=== PATIENT | female | born 1975 | race Caucasian/White ===

== ENCOUNTER 2018-04-21 19:21 | Emergency (ER) | payer OTHER ==
--- NOTE | 2018-04-21 19:46 | PDOC ---
Rapid Medical Evaluation Chief Complaint: Back Pain Time Seen by Provider: 04/21/18 19:44 Medical Evaluation: Allergies Allergy/AdvReac Type Severity Reaction Status Date / Time No Known Allergies Allergy Verified 11/09/11 08:45 04/21/18 19:44 I have performed a brief in person evaluation of this patient. The patient present with a CC of: Back pain. Pertinent PE findings: Lungs Clear Heart RRR Abd: Soft, non distended. Bowel sounds in all four quadrants. Pt has pain upon palpation to the RLQ and LLQ. No guarding. MS: Pain upon palpation to the lumbar spine. Neuro: Alert and oriented Psych: Appropriate affect I have ordered the following: Abdominal protocol The patient will proceed to the ED for further evaluation: Discharge Disposition - Diagnosis Abdominal pain Qualifiers: Abdominal location: generalized Qualified Code(s): R10.84 - Generalized abdominal pain - Referrals - Patient Instructions - Post Discharge Activity
[2018-04-21 19:53] VITALS: BP 121/80; PULSE 85; TEMP 98.5; BMI 22.6
--- NOTE | 2018-04-21 20:20 | PDOC ---
History of Present Illness - General Chief Complaint: Back Pain Stated Complaint: BACK PAIN Time Seen by Provider: 04/21/18 19:44 - History of Present Illness Initial Comments: Mandy Irizarry is an otherwise healthy 42yo woman who presents complaining of bilateral low back pain that radiates to the b/l thighs for the past 2-3 weeks. She reports that the pain started in the low back 3 weeks ago. At that time, it was a "severe" pain, but she assumed it would go away on its own. The pain continued to worsen over time, however. She had no relief from ibuprofen, aspirin, acetaminophen, or naproxen. She tried icy-hot rub, and she tried getting a massage without any relief. Recently, she started having worsening pains that radiate to the b/l groin and into the thighs. These come and go. She is able to stand from sitting and ambulate without any difficulty. She denies any urinary retention or change in bowel habits, and has not had any change in sensation. She denies fever, chills , injury prior to the pain starting, or pain in other joints or muscles. She denies any dysuria, frequency, or urgency. Currently, she reports that her pain is 8-9/10 and radiating to both thighs. Past History - Past Medical History Allergies/Adverse Reactions: Allergies Allergy/AdvReac Type Severity Reaction Status Date / Time No Known Allergies Allergy Verified 11/09/11 08:45 Home Medications: Ambulatory Orders Iron 1 tab PO DAILY 11/09/11 Acetaminophen [Tylenol .Regular Strength -] 650 mg PO Q3H PRN #0 tablet Ibuprofen [Motrin -] 600 mg PO Q4H PRN #0 tablet 11/11/11 Capsule 1 tab PO DAILY 11/11/11 Ibuprofen 600 mg PO TID PRN #21 tablet 04/21/18 Methocarbamol [Robaxin -] 1,000 mg PO TID PRN #21 tablet 04/21/18 Asthma: No Cancer: No Cardiac Disorders: No COPD: No Diabetes: No HTN: No Seizures: No Thyroid Disease: No - Suicide/Smoking/Psychosocial Hx Smoking History: Never smoked Have you smoked in the past 12 months: No Information on smoking cessation initiated: No Hx Alcohol Use: No Drug/Substance Use Hx: No Substance Use Type: None Hx Substance Use Treatment: No Review of Systems - Review of Systems Comments:: General: No fevers, no chills, no weight or appetite change, no malaise HEENT: No changes in vision, no changes in hearing, no congestion, no sore throat CV: No chest pain, no palpitations, no LE edema Pulm: No SOB, no cough, no wheezing GI: No nausea or vomiting, no change in bowel habits, no melena : No frequency, no urgency, no dysuria Musc: +low back pain, no joint swelling, no recent injury Skin: No rash, no lesions, no erythema Endo: No excessive thirst, no heat/cold intolerance Heme: No unusual bruising or bleeding, no swollen glands Neuro: No syncope, no numbness/tingling, no focal weakness Vasc: No claudication Psych: No recent change in mood, no SI or HI *Physical Exam - Vital Signs Last Vital Signs Temp Pulse Resp BP Pulse Ox 98.5 F 85 18 121/80 100 04/21/18 19:44 04/21/18 19:44 04/21/18 19:44 04/21/18 19:44 04/21/18 19:44 - Physical Exam Comments: General: Comfortable, no acute distress HEENT: PERRL, EOMI, MMM, voice normal, normal neck ROM, no LAD Cards: RRR, no murmur appreciated Pulm: Comfortable on room air, clear to auscultation bilaterally Abd: Soft, nontender, nondistended : Mild b/l CVA tenderness Back: No bony tenderness, deformity, step-offs. TTP along lumbar paraspinal muscles Ext: Atraumatic. No LE edema. ROM intact. Strength 5/5 and equal bilaterally Vasc: Extremities WWP. Palpable radial and pedal pulses bilaterally Skin: Normal color, no rashes or lesions Neuro: A&Ox3, CN grossly intact, normal speech, Motor 5/5 and equal bilaterally in hips, knees, ankles, feet. Sensation to light touch intact. Psych: Mood appropriate to situation ED Treatment Course - LABORATORY CBC & Chemistry Diagram: 04/21/18 20:14 04/21/18 20:14 Medical Decision Making - Medical Decision Making 04/21/18 21:08 Mandy Irizarry is an otherwise healthy 42yo woman who presents with 3 weeks of low back pain that radiates down both thighs anteriorly. - Neurological exam intact, no concern for spinal compression or cauda equina - No history of injury, sudden onset of pain, twist/pop that would be concerning for bony injury - No urinary frequency, dysuria, urgency, etc concerning for UTI - No h/o stones. UA and culture ordered to r/o kidney stone and UTI - Most likely musculoskeletal given tenderness along paraspinal muscles 04/21/18 21:29 - Labs returned, no concerning abnormalities - UA and UCx sent - Toradol ordered for pain 04/21/18 22:22 - UA negative - Some improvement in pain after receiving toradol - 1000mg PO methocarbamol given 04/21/18 22:38 - Pt examined by Dr Kate - Lumbar and thoracic spine xrays ordered to r/o acute pathology or spinal injury 04/22/18 00:06 - Xrays reviewed. 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 - Should follow up with Dr Casillas - Discussed follow up, medications, return precautions with Ms Irizarry. She understands and agrees with the plan to discharge home. Seen and discussed with Dr Kate. Destiney Paula PGy1 *DC/Admit/Observation/Transfer Diagnosis at time of Disposition: Lumbar back pain - Discharge Dispostion Disposition: HOME Condition at time of disposition: Stable Decision to Admit order: No - Prescriptions Prescriptions: Ibuprofen 600 mg PO TID PRN #21 tablet PRN Reason: Pain Methocarbamol [Robaxin -] 1,000 mg PO TID PRN #21 tablet PRN Reason: Pain - Referrals Referrals: Stefan Perez [Primary Care Provider] - Walt Casillas MD, FAANS [Staff Physician] - - Patient Instructions Printed Discharge Instructions: DI for Back Pain With Sciatica Additional Instructions: Discharge Instructions: - You were seen in the ED for back and leg pain - Your blood tests were all normal - Your urine test was normal; there is no sign of infection - Xrays of your back were taken to check for an abnormal curvature of your spine called scoliosis. - You have been referred to a neurosurgeon, Dr Casillas. You should make an appointment to follow up within the next 1-2 weeks or sooner if your symptoms persist. - You have been prescribed ibuprofen (pain reliever and anti-inflammatory) and methocarbamol (muscle relaxant) to help with your pain. These can be taken every 8 hours as needed for pain. They often work best when taken at the same time. - You may also consider using hot or cold packs or soaking in epsom salt baths - Consider buying lidocaine patches (e.g. IcyHot lidocaine patches) at any pharmacy. These can be applied for 12 hours per day at the site of pain. - Seek immediate medical attention if you have weakness in your legs, are unable to urinate, are unable to control your bowels, or you have numbness along your buttocks and inner thighs. - Post Discharge Activity
[2018-04-21 20:23] LABS: BASO % 0.8 % (0-2.0); EOS % 6.5 % (0-4.5); HEMATOCRIT 33.9 % (32.4-45.2); HEMOGLOBIN 11.4 GM/dL (10.7-15.3); LYMPH % 37.3 % (8-40); MCH 30.1 pg (25.7-33.7); MCHC 33.7 g/dl (32.0-36.0); MEAN CELL VOLUME 89.2 fl (80-96); MEAN PLT VOLUME 7.9 fl (7.5-11.1); MONO % 6.6 % (3.8-10.2); NEUT % 48.8 % (42.8-82.8); PLATELET COUNT 226 K/MM3 (134-434); RDW 13.1 % (11.6-15.6); WHITE BLOOD COUNT 3.5 K/mm3 (4.0-10.0)
[2018-04-21 20:46] LABS: ALBUMIN 4.2 g/dl (3.4-5.0); ALK PHOS 51 U/L (45-117); ANION GAP 7 MMOL/L (8-16); BILIRUBIN,TOTAL 0.2 mg/dL (0.2-1); BLOOD UREA NITROGEN 12 mg/dL (7-18); CALCIUM 8.8 mg/dL (8.5-10.1); CHLORIDE 104 mmol/L (98-107); CO2 30 mmol/L (21-32); CREATININE 0.7 mg/dL (0.55-1.3); GLUCOSE,RANDOM 84 mg/dL (74-106); LIPASE 128 U/L (73-393); POTASSIUM 3.8 mmol/L (3.5-5.1); SGOT/AST 15 U/L (15-37); SGPT/ALT 20 U/L (13-61); SODIUM 141 mmol/L (136-145); TOT PROT 7.3 g/dl (6.4-8.2)
--- NOTE | 2018-04-21 21:12 | PDOC ---
Attending Attestation - [facility] HPI: 04/21/18 22:47 The patient is a 42 year old female with no significant past medical history who presents to the ED with complaints of intermittent bilateral low back pain that radiates to the thighs for the past 2-3 weeks. Patient states she was working out at the gym 3 weeks ago and the next day she woke up to severe lower back pain. She states her lower back pain progressively worsened over time and now states it radiates to her groin and into her thighs. She had no relief from ibuprofen, aspirin, acetaminophen, or naproxen. She tried icy-hot rub, and she tried getting a massage without any relief. Denies fever or chills. Denies edema. Denies chest pain or shortness of breath. Denies focal numbness/weakness/tingling. Denies dysuria or change in urinary output. Denies any other symptoms. - Physicial Exam PE: 04/21/18 22:47 Constitutional: Awake, alert, oriented. No acute distress. Head: Normocephalic. Atraumatic Eyes: PERRL. EOMI. Conjunctivae are not pale. ENT: Mucous membranes are moist and intact. Posterior pharynx without exudates or erythema. Uvula midline. Neck: Supple. Full ROM. No lymphadenopathy. Cardiovascular: Regular rate. Regular rhythm. S1, S2 regular. Distal pulses are 2+ and symmetric. Pulmonary/Chest: No evidence of respiratory distress. Clear to auscultation bilaterally No wheezing, rales or rhonchi. Abdominal: Soft and non-distended. There is no tenderness. No rebound, guarding or rigidity. No organomegaly. No palpable masses. Good bowel sounds. Back: + Normal ROM with side bending on both sides and extension. Limited ROM on flexion, to 5 degrees secondary to pain. Stands leaning towards the left. No CVA tenderness. Musculoskeletal: No edema. No cyanosis. No clubbing. Full range of motion in all extremities. Nocalf tenderness. Radial/pedal pulses are intact and 2+ bilaterally Skin: Skin is warm and dry. No petechiae. No purpura. Neurological: Alert and oriented to person, place, and time. Cranial nerves II -XII are grossly intact. Normal speech. Strength is grossly symmetric. No sensory deficits. Ambulated with a steady gait on heels and on toes. Psychiatric: Good eye contact. Normal interaction, affect and behavior. <Carmen Andrews - Last Filed: 04/21/18 22:47> - Resident Resident Name: ChaiDestiney - ED Attending Attestation I have performed the following: I have examined & evaluated the patient, The case was reviewed & discussed with the resident, I agree w/resident's findings & plan, Exceptions are as noted - Medical Decision Making 04/21/18 21:12 I, Dr. Emilia Kate, DO, attest that this document has been prepared under my direction and personally reviewed by me in its entirety. I further attest, that it accurately reflects all work, treatment, procedures and medical decision -making performed by me. 04/21/18 22:59 a/p: 42yo female with lbp x 1 month -states pain started after a big work out -states pain radiates down legs -no numbness or tingling -no paresthesias -no weakness -pt ambulates with a steady gait -no redflags -no signs of caude equina -pain with forward flexion -will give pain meds -xray -will monitor and reassess 04/22/18 00:05 degenerative changes to thoracic and lumbar spine pt feels better after medication pt is stable for d/c to home with follow up with neurosx <Emilia Kate - Last Filed: 04/22/18 00:06> Attestations - Attestations 04/21/18 22:47 Documentation prepared by Carmen Andrews, acting as medical secretary teacher for Emilia Kate DO <Carmen Andrews - Last Filed: 04/21/18 22:47>
[2018-04-21] MEDS ORDERED: KETOROLAC TROMETHAMINE 30 MG/1 ML VIAL IVPUSH ONE (21:30)
[2018-04-21 21:39] LABS: URINE APPEARANCE CLEAR; URINE BILIRUBIN NEGATIVE (<2.0 mg/dL); URINE COLOR LTYELLOW; URINE GLUCOSE (UA) NEGATIVE (NEGATIVE); URINE KETONE NEGATIVE (NEGATIVE); URINE LEUK ESTERASE NEGATIVE (NEGATIVE); URINE NITRITE NEGATIVE (NEGATIVE); URINE PROTEIN NEGATIVE (NEGATIVE); URINE UROBILINOGEN NEGATIVE mg/dL (0.2-1.0)
[2018-04-21 21:40] LABS: HCG,QUALITATIVE URINE Negative
[2018-04-21] MEDS ORDERED: KETOROLAC TROMETHAMINE 30 MG/1 ML VIAL ONE (21:51)
[2018-04-21] MEDS ORDERED: LIDOCAINE PATCH REMOVAL MC SCH (22:00)
[2018-04-21] MEDS ORDERED: METHOCARBAMOL 500 MG TABLET PO ONE (22:13)
[2018-04-21] MEDS ORDERED: METHOCARBAMOL 500 MG TABLET ONE ×2 (22:16→23:11)
[2018-04-21] MEDS ORDERED: LIDOCAINE 5% TOPICAL PATCH TP ONE (22:49)
[2018-04-21] MEDS ORDERED: LIDOCAINE 5% TOPICAL PATCH ONE (23:11)
== END 2018-04-22 00:18 | disposition home or self-care (01) ==
LOC: JERFT 19:21
PROC: 3E0333Z Introduction of Anti-inflammatory into Peripheral Vein, Percutaneous Approach (ICD-10-PCS; principal; 2018-04-21)
DX: M54.5 Low back pain (principal); M51.36 Other intervertebral disc degeneration, lumbar region; M51.34 Other intervertebral disc degeneration, thoracic region
CPT/HCPCS: 36415; 72070-TC-FY; 72100-TC-FY; 80053; 81003; 83690; 84703; 85025; 87086; 99283-25